=== PATIENT | male | born 1955 | race Two or more races ===

== ENCOUNTER 2017-05-14 11:03 | Inpatient (IN) | payer MEDICAID, OTHER ==
[~2017-05-14] VITALS: Ht 185.4 cm; Wt 88.6 kg
[2017-05-14] MEDS ORDERED: SODIUM CHLORIDE 0.9% 500 ML IVB ONE (11:58)
[2017-05-14 12:05] LABS: Basophils # (auto) 0 uL; Basophils % (auto) 0.3 % (0.0-2.0); CONDITION AutoValidated; DEFINITIVE SEE PRINTOUT; Eosinophils # (auto) 0.1 uL; Eosinophils % (auto) 3.3 % (0.0-7.0); Hematocrit 33.9 % (41.0-53.0); Lymphocytes # (auto) 0.5 uL; Mean Corpuscular Hemoglobin 24.3 pg (28.0-32.0); Mean Corpuscular Hgb Conc. 32.5 g/dL (32.0-36.0); Mean Corpuscular Volume 74.8 fL (80.0-100.0); Mean Platelet Volume 12.1 fL (7.4-10.4); Monocytes # (auto) 0.3 uL; Neutrophils # (auto) 1.9 uL; Neutrophils % (auto) 66.4 % (37.0-80.0); Platelet Count (auto) 83 10^3/uL (140-450); Red Cell Distribution Width 18.4 % (11.6-16.0); White Blood Cell 2.9 10^3/uL (4.4-10.8)
[2017-05-14 12:22] LABS: Albumin 2.8 g/dL (3.4-5.0); Alkaline Phosphatase 71 U/L (45-117); Anion Gap 9 (5-15); Aspartate Aminotransferase 29 U/L (15-37); BUN/Creatinine Ratio 18.6; Bilirubin, Total 1.1 mg/dL (0.2-1.0); Blood Urea Nitrogen 22 mg/dL (7-18); Calcium 7.9 mg/dL (8.5-10.1); Carbon Dioxide 25 mmol/L (21-32); Chloride 103 mmol/L (98-107); GFR African American 81 mL/min; GFR Non-African American 67 mL/min; Glucose 127 mg/dL (74-106); Sodium 137 mmol/L (136-145); Total Protein 7.2 g/dL (6.4-8.2)
[2017-05-14] MEDS ORDERED: LACTULOSE 20Gm/30ML SOLN PO ONE (13:45)
[2017-05-14] MEDS ORDERED: MORP15TA PO (14:02)
[2017-05-14] MEDS ORDERED: LOR05T PO (14:02)
[2017-05-14] MEDS ORDERED: HAL5T PO (14:02)
[2017-05-14] MEDS ORDERED: GABA-497 PO (14:02)
[2017-05-14] MEDS ORDERED: PRO10T PO (14:07)
[2017-05-14] MEDS ORDERED: HYDR12.56 PO (14:07)
[2017-05-14] MEDS ORDERED: FURO20TA3 PO (14:07)
[2017-05-14] MEDS ORDERED: METF-372 PO (14:07)
[2017-05-14] MEDS ORDERED: LACT10SO3 PO (14:07)
[2017-05-14] MEDS ORDERED: SPIR50TA23 PO (14:07)
[2017-05-14] MEDS ORDERED: OMEP20CA74 PO (14:07)
[2017-05-14] MEDS ORDERED: LISI10TA6 PO (14:07)
[2017-05-14] MEDS ORDERED: LORazepam 0.5 MG TAB PO PRN (15:30)
[2017-05-14] MEDS: LISINOPRIL 10 MG TAB PO SCH (16:09)
[2017-05-14] MEDS: HCTZ 25 MG TAB PO SCH (16:09)
[2017-05-14] MEDS: PANTOPRAZOLE 40 MG TAB PO SCH (16:09)
[2017-05-14] MEDS ORDERED: DEXTROSE (50%) 50ML SYRG IV PRN (16:30)
[2017-05-14] MEDS ORDERED: DOCUSATE SOD 100 MG CAP PO PRN (16:30)
[2017-05-14] MEDS ORDERED: HYDROcodone-ACET 5/325MG TAB PO PRN (16:30)
[2017-05-14] MEDS ORDERED: MORPHINE SULF INJ 2 MG/ML SYRINGE 1ML IV PRN (16:30)
[2017-05-14] MEDS ORDERED: ACETAMINOPHEN 325 MG TAB PO PRN (16:30)
[2017-05-14] MEDS ORDERED: TEMAZEPAM 15 MG CAP PO PRN (16:30)
[2017-05-14] MEDS ORDERED: ONDANSETRON HCL 4 MG/2 ML VIAL IV PRN (16:30)
[2017-05-14] MEDS: ACCU-CHEK COMFORT CURVE STRIP VI SCH ×2 (17:19→22:06)
[2017-05-14] MEDS: InsuLIN REG 1unit/0.01ml Soln (100units/ml) SC SCH ×2 (17:26→22:00)
[2017-05-14] MEDS: MULTIPLE VITAMIN TAB PO SCH (18:30)
[2017-05-14] MEDS: metFORMIN HYDROCHLORIDE 500 MG TAB PO SCH (18:30)
[2017-05-14] MEDS: Boost Glucose Control 8 Ounces PO SCH ×2 (18:30→22:00)
[2017-05-14] MEDS: HALOPERIDOL 1 MG TAB PO SCH ×2 (18:30→23:56)
[2017-05-14] MEDS: LACTULOSE 20Gm/30ML SOLN PO SCH ×2 (18:30→22:04)
[2017-05-14] MEDS: FUROSEMIDE 20 MG TAB PO SCH (18:30)
[2017-05-14 20:00] VITALS: BP 126/76
[2017-05-14] MEDS: SPIRONOLACTONE 25 MG TAB PO SCH (20:37)
[2017-05-14] MEDS: NEOMYCIN SULFATE 500 MG TAB PO SCH (20:37)
[2017-05-14] MEDS ORDERED: FAMOTIDINE 20 MG TAB PO SCH (22:00)
[2017-05-14] MEDS ORDERED: traZODone HCL 50 MG TAB PO SCH (22:00)
[2017-05-14] MEDS: SODIUM CHLOR 0.9% PF (SALINE LOCK) 10ML VIAL IV SCH (22:03)
[2017-05-14] MEDS: GABAPENTIN 300 MG CAP PO SCH (22:05)
[2017-05-14] MEDS: PROPRANOLOL HCL 20 MG TAB PO SCH (22:05)
[2017-05-14] MEDS: MORPHINE SULF 15mg ER tab PO SCH (22:06)
[2017-05-15] MEDS: LACTULOSE 20Gm/30ML SOLN PO SCH ×6 (02:00→22:33)
[2017-05-15] MEDS: ACCU-CHEK COMFORT CURVE STRIP VI SCH ×4 (05:59→22:39)
[2017-05-15] MEDS: InsuLIN REG 1unit/0.01ml Soln (100units/ml) SC SCH ×4 (05:59→22:39)
[2017-05-15] MEDS: SODIUM CHLOR 0.9% PF (SALINE LOCK) 10ML VIAL IV SCH ×3 (05:59→22:33)
[2017-05-15] MEDS: Boost Glucose Control 8 Ounces PO SCH ×4 (06:00→22:34)
[2017-05-15] MEDS: FUROSEMIDE 20 MG TAB PO SCH (06:00)
[2017-05-15] MEDS: HALOPERIDOL 1 MG TAB PO SCH ×2 (06:00→11:53)
[2017-05-15] MEDS: SPIRONOLACTONE 25 MG TAB PO SCH (06:00)
[2017-05-15 06:31] LABS: Basophils # (auto) 0 uL; Basophils % (auto) 0.6 % (0.0-2.0); CONDITION AutoValidated; DEFINITIVE SEE PRINTOUT; Eosinophils # (auto) 0.1 uL; Eosinophils % (auto) 3.5 % (0.0-7.0); Hematocrit 32.6 % (41.0-53.0); Hemoglobin 10.5 g/dL (13.5-17.5); Lymphocytes # (auto) 0.6 uL; Lymphocytes % (auto) 16.4 % (10.0-50.0); Mean Corpuscular Hemoglobin 23.7 pg (28.0-32.0); Mean Corpuscular Hgb Conc. 32.3 g/dL (32.0-36.0); Mean Corpuscular Volume 73.4 fL (80.0-100.0); Mean Platelet Volume 12.1 fL (7.4-10.4); Monocytes # (auto) 0.5 uL; Monocytes % (auto) 14.1 % (0.0-12.0); Neutrophils # (auto) 2.4 uL; Neutrophils % (auto) 65.4 % (37.0-80.0); Platelet Count (auto) 101 10^3/uL (140-450); Red Cell Distribution Width 18.5 % (11.6-16.0); SUSPECT SEE PRINTOUT; White Blood Cell 3.6 10^3/uL (4.4-10.8)
[2017-05-15] MEDS: metFORMIN HYDROCHLORIDE 500 MG TAB PO SCH (07:00)
[2017-05-15 07:07] LABS: Albumin 2.9 g/dL (3.4-5.0); BUN/Creatinine Ratio 17.2; Bilirubin, Total 1.4 mg/dL (0.2-1.0); Calcium 8.4 mg/dL (8.5-10.1); Potassium 3.6 mmol/L (3.5-5.1); Total Protein 7.4 g/dL (6.4-8.2)
[2017-05-15 07:54] VITALS: BP 82/50
[2017-05-15 08:00] VITALS: BP 82/50
[2017-05-15] MEDS: HCTZ 25 MG TAB PO SCH (10:00)
[2017-05-15] MEDS: MORPHINE SULF 15mg ER tab PO SCH (10:00)
[2017-05-15] MEDS: PROPRANOLOL HCL 20 MG TAB PO SCH (10:00)
[2017-05-15] MEDS: LISINOPRIL 10 MG TAB PO SCH (10:00)
[2017-05-15] MEDS: NEOMYCIN SULFATE 500 MG TAB PO SCH ×2 (11:51→17:52)
[2017-05-15] MEDS: GABAPENTIN 300 MG CAP PO SCH (11:52)
[2017-05-15] MEDS: PANTOPRAZOLE 40 MG TAB PO SCH (11:52)
[2017-05-15] MEDS: MULTIPLE VITAMIN TAB PO SCH (11:52)
[2017-05-15 12:18] VITALS: BP 87/60
[2017-05-15] MEDS ORDERED: cefTRIAXone 1GM/50ML D5W 50 ML IV ONE (14:15)
[2017-05-15 21:18] VITALS: BP 111/72
[2017-05-16] MEDS: LACTULOSE 20Gm/30ML SOLN PO SCH ×6 (01:30→21:52)
[2017-05-16 05:15] VITALS: BP 135/85
[2017-05-16] MEDS: SODIUM CHLOR 0.9% PF (SALINE LOCK) 10ML VIAL IV SCH ×3 (06:21→21:21)
[2017-05-16] MEDS: Boost Glucose Control 8 Ounces PO SCH ×4 (06:26→21:21)
[2017-05-16] MEDS: ACCU-CHEK COMFORT CURVE STRIP VI SCH ×4 (06:26→21:52)
[2017-05-16 06:30] LABS: Basophils # (auto) 0 uL; Basophils % (auto) 0.3 % (0.0-2.0); CONDITION Y; DEFINITIVE SEE PRINTOUT; Eosinophils # (auto) 0 uL; Hematocrit 33.1 % (41.0-53.0); Hemoglobin 10.8 g/dL (13.5-17.5); Lymphocytes # (auto) 0.5 uL; Mean Corpuscular Hemoglobin 23.8 pg (28.0-32.0); Mean Corpuscular Hgb Conc. 32.5 g/dL (32.0-36.0); Mean Corpuscular Volume 73.2 fL (80.0-100.0); Mean Platelet Volume 12.4 fL (7.4-10.4); Monocytes # (auto) 0.5 uL; Monocytes % (auto) 10.2 % (0.0-12.0); Neutrophils # (auto) 3.8 uL; Neutrophils % (auto) 78.5 % (37.0-80.0); Platelet Count (auto) 106 10^3/uL (140-450); Red Cell Distribution Width 19.1 % (11.6-16.0); SUSPECT SEE PRINTOUT; White Blood Cell 4.9 10^3/uL (4.4-10.8)
[2017-05-16 06:49] LABS: Potassium 3.5 mmol/L (3.5-5.1)
[2017-05-16 06:52] LABS: BUN/Creatinine Ratio 14.9
[2017-05-16 06:54] LABS: Bilirubin, Total 1.3 mg/dL (0.2-1.0); Total Protein 7.6 g/dL (6.4-8.2)
[2017-05-16] MEDS: InsuLIN REG 1unit/0.01ml Soln (100units/ml) SC SCH ×4 (07:40→21:52)
[2017-05-16 08:00] VITALS: BP 143/72
[2017-05-16] MEDS: NEOMYCIN SULFATE 500 MG TAB PO SCH ×2 (08:00→18:47)
[2017-05-16 09:00] VITALS: BP 143/72
[2017-05-16] MEDS: cefTRIAXone 1GM/50ML D5W 50 ML IV SCH (09:00)
[2017-05-16] MEDS: PANTOPRAZOLE 40 MG TAB PO SCH (10:24)
[2017-05-16] MEDS: MULTIPLE VITAMIN TAB PO SCH (10:24)
[2017-05-16 13:00] VITALS: BP 107/52
[2017-05-16 16:39] VITALS: BP 116/74
[2017-05-16 22:02] VITALS: BP 123/87
[2017-05-17] MEDS: LACTULOSE 20Gm/30ML SOLN PO SCH ×4 (02:34→13:46)
[2017-05-17 05:22] VITALS: BP 109/73
[2017-05-17] MEDS: Boost Glucose Control 8 Ounces PO SCH ×2 (06:08→12:00)
[2017-05-17] MEDS: SODIUM CHLOR 0.9% PF (SALINE LOCK) 10ML VIAL IV SCH ×2 (06:08→14:00)
[2017-05-17] MEDS: InsuLIN REG 1unit/0.01ml Soln (100units/ml) SC SCH ×2 (06:30→11:30)
[2017-05-17] MEDS: ACCU-CHEK COMFORT CURVE STRIP VI SCH ×2 (06:30→11:30)
[2017-05-17 08:00] VITALS: BP 135/79
[2017-05-17 08:35] VITALS: BP 135/90
[2017-05-17] MEDS: MULTIPLE VITAMIN TAB PO SCH (09:30)
[2017-05-17] MEDS: NEOMYCIN SULFATE 500 MG TAB PO SCH (09:30)
[2017-05-17] MEDS: PANTOPRAZOLE 40 MG TAB PO SCH (09:30)
[2017-05-17] MEDS: cefTRIAXone 1GM/50ML D5W 50 ML IV SCH (09:31)
[2017-05-17 12:32] VITALS: BP 116/76
[2017-05-17 13:59] VITALS: BP 82/50
== END 2017-05-17 15:45 | disposition hospice, home (50) | DRG 279 ==
LOC: EDBD 11:03 → ER 11:08 → OVERFLOW 11:09 → WEST WING 18:52
PROVIDERS: ADMIT Internal Medicine; ATTEND Internal Medicine
DX: K72.90 Hepatic failure, unspecified without coma (principal); E43 Unspecified severe protein-calorie malnutrition; D61.818 Other pancytopenia; K65.2 Spontaneous bacterial peritonitis; I13.0 Hypertensive heart and chronic kidney disease with heart failure and stage 1 through stage 4 chronic kidney disease, or unspecified chronic kidney disease; I50.9 Heart failure, unspecified; E11.21 Type 2 diabetes mellitus with diabetic nephropathy; K76.6 Portal hypertension; K74.60 Unspecified cirrhosis of liver; K21.9 Gastro-esophageal reflux disease without esophagitis; E83.51 Hypocalcemia; D64.9 Anemia, unspecified; E66.9 Obesity, unspecified; N18.2 Chronic kidney disease, stage 2 (mild); B19.20 Unspecified viral hepatitis C without hepatic coma; E11.22 Type 2 diabetes mellitus with diabetic chronic kidney disease; E11.65 Type 2 diabetes mellitus with hyperglycemia; I50.32 Chronic diastolic (congestive) heart failure; Z85.9 Personal history of malignant neoplasm, unspecified; Z68.25 Body mass index [BMI] 25.0-25.9, adult
CPT/HCPCS: 36415; 80053; 80307; 80320; 82140; 82962; 83036; 84484; 85025; 87493; 94761; 96360; J0696; J1815